=== PATIENT | female | born 1940 | race Caucasian/White ===

== ENCOUNTER 2025-03-08 21:49 | Inpatient (IN) | payer MEDICARE, OTHER ==
[2025-03-08] MEDS: Sodium Chloride 0.9% 10 ML Syringe FLUSH PRN (22:50)
[2025-03-08 22:51] LABS: BASOPHILS ABSOLUTE AUTO 0.0 x10-3/uL (0.0-0.1); BASOPHILS PERCENT AUTO 0.3 % (0.2-1.5); EOSINOPHILS ABSOLUTE AUTO 0.0 x10-3/uL (0.0-0.8); EOSINOPHILS PERCENT AUTO 0.0 % (0.6-8.1); LYMPHOCYTES ABSOLUTE AUTO 1.3 x10-3/uL (1.0-4.4); LYMPHOCYTES PERCENT AUTO 13.6 % (18.4-52.1); MEAN PLATELET VOLUME 9.0 fL (7.1-12.4); MONOCYTES ABSOLUTE AUTO 0.9 x10-3/uL (0.3-1.0); MONOCYTES PERCENT AUTO 8.8 % (4.4-15.7); NEUTROPHILS ABSOLUTE AUTO 7.6 x10-3/uL (1.5-6.3); NEUTROPHILS PERCENT AUTO 77.3 % (30.8-76.2); PLATELET COUNT,PLT 234 x10(3)uL (151-488); RED BLOOD CELL COUNT 4.29 x10(6)uL (3.60-5.20); RED CELL DISTRIBUTION WIDTH 13.7 % (12.3-16.5); WHITE BLOOD CELL COUNT,WBC 9.8 x10-3/uL (3.0-10.3)
[2025-03-08 22:53] LABS: BLOOD UREA NITROGEN,BUN 22 mg/dL (7-18); CARBON DIOXIDE,CO2 25 mmol/L (21-32); CHLORIDE,CL 100 mmol/L (100-110); CREATININE 0.9 mg/dL (0.55-1.02); ESTIMATED GFR 63 mL/min (>60); GLUCOSE RANDOM 111 mg/dL (80-116); POTASSIUM,K 3.5 mmol/L (3.5-5.3); SODIUM,NA 137 mmol/L (135-145)
[2025-03-08 22:59] LABS: A/G RATIO 0.9; ALANINE AMINOTRANSFERASE,ALT 28 U/L (12-36); ASPARTATE AMNIOTRANSFERASE,AST 120 IU/L (5-25); BILIRUBIN TOTAL 0.5 mg/dL (0.1-1.3); PROTEIN TOTAL,TP 7.8 g/dL (6.0-8.0)
[2025-03-08 23:02] LABS: LACTIC ACID 1.5 mmol/L (0.4-2.0)
[2025-03-09] MEDS ORDERED: Naloxone 0.4 MG/ML SDV IVPUSH PRN (11:24)
[2025-03-09] MEDS: CHLORPHENIRAMINE MALEATE 4 MG PO SCH (11:45)
[2025-03-09 17:24] LABS: LITHIUM, SERUM OR PLASMA <0.2
[2025-03-09] MEDS: Heparin Sodium 5,000 Units/ML Vial SUBCUT SCH (17:39)
[2025-03-09] MEDS: AUTOLOGOUS SERUM EYEBOTH SCH (17:39)
[2025-03-10 06:49] LABS: BASOPHILS ABSOLUTE AUTO 0.0 x10-3/uL (0.0-0.1); BASOPHILS PERCENT AUTO 0.2 % (0.2-1.5); EOSINOPHILS ABSOLUTE AUTO 0.0 x10-3/uL (0.0-0.8); EOSINOPHILS PERCENT AUTO 0.2 % (0.6-8.1); LYMPHOCYTES ABSOLUTE AUTO 1.1 x10-3/uL (1.0-4.4); LYMPHOCYTES PERCENT AUTO 29.1 % (18.4-52.1); MEAN PLATELET VOLUME 8.9 fL (7.1-12.4); MONOCYTES ABSOLUTE AUTO 0.4 x10-3/uL (0.3-1.0); MONOCYTES PERCENT AUTO 10.4 % (4.4-15.7); NEUTROPHILS ABSOLUTE AUTO 2.3 x10-3/uL (1.5-6.3); NEUTROPHILS PERCENT AUTO 60.1 % (30.8-76.2); PLATELET COUNT,PLT 173 x10(3)uL (151-488); RED BLOOD CELL COUNT 3.61 x10(6)uL (3.60-5.20); RED CELL DISTRIBUTION WIDTH 13.2 % (12.3-16.5); WHITE BLOOD CELL COUNT,WBC 3.8 x10-3/uL (3.0-10.3)
[2025-03-10 06:56] LABS: A/G RATIO 0.8; ALANINE AMINOTRANSFERASE,ALT 35 U/L (12-36); ASPARTATE AMNIOTRANSFERASE,AST 83 IU/L (5-25); BILIRUBIN TOTAL 0.3 mg/dL (0.1-1.3); BLOOD UREA NITROGEN,BUN 19 mg/dL (7-18); CARBON DIOXIDE,CO2 27 mmol/L (21-32); CHLORIDE,CL 105 mmol/L (100-110); CREATININE 0.7 mg/dL (0.55-1.02); EST CRCL DRUG DOSING (CG) 42.97 mL/min; ESTIMATED GFR 85 mL/min (>60); GLUCOSE RANDOM 87 mg/dL (80-116); POTASSIUM,K 3.0 mmol/L (3.5-5.3); PROTEIN TOTAL,TP 5.9 g/dL (6.0-8.0); SODIUM,NA 140 mmol/L (135-145)
[2025-03-10] MEDS: LITHIUM CARBONATE 150 MG PO SCH ×2 (10:17→20:59)
[2025-03-10] MEDS: [UNRECOGNIZED DRUG - OTHER] EYEBOTH SCH (10:18)
[2025-03-10] MEDS: Potassium Chloride 20 MEQ in Premix Bag 1 BAG IV SCH (10:19)
[2025-03-10] MEDS: Potassium Chloride 20 MEQ Tab.ER PO ONE (12:00)
[2025-03-11 06:39] LABS: MEAN PLATELET VOLUME 8.6 fL (7.1-12.4); PLATELET COUNT,PLT 201 x10(3)uL (151-488); RED BLOOD CELL COUNT 4.11 x10(6)uL (3.60-5.20); RED CELL DISTRIBUTION WIDTH 13.5 % (12.3-16.5); WHITE BLOOD CELL COUNT,WBC 3.5 x10-3/uL (3.0-10.3)
[2025-03-11 06:53] LABS: A/G RATIO 0.8; ALANINE AMINOTRANSFERASE,ALT 43 U/L (12-36); ASPARTATE AMNIOTRANSFERASE,AST 77 IU/L (5-25); BILIRUBIN TOTAL 0.3 mg/dL (0.1-1.3); BLOOD UREA NITROGEN,BUN 15 mg/dL (7-18); CARBON DIOXIDE,CO2 28 mmol/L (21-32); CHLORIDE,CL 105 mmol/L (100-110); CREATININE 0.8 mg/dL (0.55-1.02); EST CRCL DRUG DOSING (CG) 37.60 mL/min; ESTIMATED GFR 73 mL/min (>60); GLUCOSE RANDOM 90 mg/dL (80-116); POTASSIUM,K 3.6 mmol/L (3.5-5.3); PROTEIN TOTAL,TP 6.3 g/dL (6.0-8.0); SODIUM,NA 140 mmol/L (135-145)
[2025-03-11 07:08] LABS: EOSINOPHILS PERCENT MAN 4 % (0-5); LYMPHOCYTES PERCENT MAN 40 % (13-37); MONOCYTES PERCENT MAN 34 % (4-12); SEG NEUTROPHILS PERCENT MAN 22 % (46-82)
[2025-03-11] MEDS ORDERED: Insulin Regular, Human 100 Units/ML 10 ML Vial ONE (14:23)
[2025-03-11 14:39] VITALS: BP 123/72
[2025-03-11 14:40] VITALS: PULSE 91
== END 2025-03-11 14:35 | disposition home or self-care (01) | DRG 179 ==
LOC: FB.ED 21:49 → FB.MS 23:48
PROVIDERS: ADMIT Internal Medicine; ATTEND Internal Medicine
PROC: 8E0ZXY6 Isolation (ICD-10-PCS; 2025-03-08)
PROC: XW033E5 Introduction of Remdesivir Anti-infective into Peripheral Vein, Percutaneous Approach, New Technology Group 5 (ICD-10-PCS; principal; 2025-03-09)
DX: U07.1 COVID-19 (principal); M81.0 Age-related osteoporosis without current pathological fracture; F31.9 Bipolar disorder, unspecified; H91.90 Unspecified hearing loss, unspecified ear; M43.16 Spondylolisthesis, lumbar region; M48.061 Spinal stenosis, lumbar region without neurogenic claudication; Z88.2 Allergy status to sulfonamides; Z90.710 Acquired absence of both cervix and uterus; Z79.899 Other long term (current) drug therapy; Z79.890 Hormone replacement therapy
CPT/HCPCS: 36415; 71045; 71046; 72100; 72131; 80053; 80178; 83605; 85025; 86140; 87040; 87428-QW; 87651; 94640; 96360; 97161-GP; 97165-GO; 99284; 99285-25; A9270-GY; J1644; J3480; J7030; J7050